=== PATIENT | male | born 1980 | race Caucasian/White ===

== ENCOUNTER 2019-02-13 16:26 | Emergency (ER) | payer MEDICAID ==
[~2019-02-13] VITALS: Ht 177.8 cm; Wt 113.4 kg
[~2019-02-13 16:26] MED LIST: ACET500; ALBU90OI; ALBU90OI61 INH; CEFP500 PO; CEPH500 PO; CLIN300 PO; CYCL10 PO; DAYQUIL; DEXA6 PO; ERYT.5TO OS; ERYT500 PO; HYDACE5 PO; HYDACE7.5L PO; IBUP800; IBUP800 PO; LEVFLO500 PO; METR500 PO; NAPR500 PO; OXYACE5T PO; OXYACE7.5T PO; PRED20 PO; PROM25 PO; RXOXYACE PO; TOBDEXOPSU OP
== END 2019-02-13 17:50 | disposition home or self-care (01) ==
LOC: ER 16:26
DX: L23.7 Allergic contact dermatitis due to plants, except food (principal); R03.0 Elevated blood-pressure reading, without diagnosis of hypertension; Z88.0 Allergy status to penicillin; F17.200 Nicotine dependence, unspecified, uncomplicated
CPT/HCPCS: 96372; 99282-25; J3301